=== PATIENT | female | born 1965 | race Caucasian/White ===

== ENCOUNTER 2018-01-25 15:29 | Outpatient (CLI) | payer BC ==
[2018-01-25 17:01] LABS: #Basophils 0.1 thou/uL (0.0-0.2); #Eosinphils 0.1 thou/uL (0.0-0.7); #Lymphocytes 1.7 thou/uL (1.20-3.40); #Monocytes 0.7 thou/uL (0.11-0.59); #Neutrophils 2.9 thou/uL (1.40-6.50); %Basophils 1.3 % (0.0-1.0); %Eosinophils 2.1 % (0.0-10.0); %Lymphocytes 31.8 % (21.0-51.0); %Monocytes 12.5 % (0.0-10.0); %Neutrophils 52.2 % (42.0-75.0); Hemoglobin 14.2 g/dL (12.0-16.0); Mean Corpuscular HGB CONC 33.6 g/dL (32.0-36.0); Mean Corpuscular Hemoglobin 31.9 pg (27.0-31.0); Mean Corpuscular Volume 94.9 fL (78.0-98.0); Mean Platelet Volume 7.7 fL (7.4-10.4); Platelet Count 280 thou/uL (130-400); RBC Distribution Width 11.1 % (11.5-14.5); Red Blood Cell (RBC) Count 4.44 mill/uL (4.20-5.40); White Blood Cell (WBC) Count 5.5 thou/uL (4.8-10.8)
[2018-01-25 17:31] LABS: Anion Gap 15 mmol/L (10-20); BUN (Urea Nitrogen) 25 mg/dL (9.8-20.1); Calc. Creatinine Clearance 0 mL/min (70-130); Carbon Dioxide 23 mmol/L (22-29); Chloride 108 mmol/L (98-107); Estimated GFR-MDRD 68; Sodium 142 mmol/L (136-145)
[2018-01-25 17:32] LABS: Calcium 9.9 mg/dL (7.8-10.44); Glucose 88 mg/dL (70-105)
== END 2018-01-25 15:30 | disposition home or self-care (01) ==
LOC: LABBT 15:29
PROVIDERS: ATTEND Orthopaedic Surgery
DX: Z01.818 Encounter for other preprocedural examination (principal); M75.101 Unspecified rotator cuff tear or rupture of right shoulder, not specified as traumatic
CPT/HCPCS: 80048; 85025; 93005; 93010

== ENCOUNTER 2018-02-01 06:23 | Day surgery (SDC) | payer BC ==
[2018-01-25 15:46] VITALS: BMI 28.8
[2018-02-01] MEDS ORDERED: Midazolam HCl 2 mg/2 ml Vial ONE (07:08)
[2018-02-01] MEDS ORDERED: Fentanyl 100 MCG/2 ML VIAL ONE ×2 (07:09→07:51)
[2018-02-01] MEDS ORDERED: CEFAZOLIN 2 GM/50 ML BAG ONE (07:30)
[2018-02-01] MEDS ORDERED: Scopolamine 1.5 mg/72 hour Patch ONE (07:30)
[2018-02-01] MEDS ORDERED: Ketorolac Tromethamine 30 MG/ML VIAL IVP PRN (07:56)
[2018-02-01] MEDS ORDERED: traMADol HCl 50 MG TAB PO PRN ×2 (07:56)
[2018-02-01] MEDS ORDERED: HYDROcodone/Acetaminophen 10/325 mg Tablet PO PRN ×2 (07:56)
[2018-02-01] MEDS ORDERED: Zolpidem Tartrate 5 MG TAB PO PRN (07:56)
[2018-02-01] MEDS ORDERED: Promethazine HCl 25 MG/ML VIAL IM PRN (07:56)
[2018-02-01] MEDS ORDERED: Ropivacaine 0.2% 550 ML 550 ML NERVE BLCK SCH (07:56)
[2018-02-01] MEDS ORDERED: Ondansetron PF 4 MG/2 ML Vial IVP PRN (07:56)
[2018-02-01] MEDS ORDERED: Fentanyl 100 MCG/2 ML VIAL IV PRN (08:01)
[2018-02-01] MEDS ORDERED: Ropivacaine 0.2% HCl/PF (40 MG/20 ML VIAL) ONE (15:22)
[2018-02-01] MEDS ORDERED: Ropivacaine 0.5% HCl/PF (150 MG/30 ML VIAL) ONE (15:22)
--- NOTE | 2018-02-01 15:47 | OP ---
DATE OF PROCEDURE: 02/01/2018 PREOPERATIVE DIAGNOSIS: Rotator cuff tear, right. POSTOPERATIVE DIAGNOSIS: Rotator cuff tear, right. ASSISTANTS: None. BLOOD LOSS: Minimal. SPECIMENS: None. DRAINS: None. COMPLICATIONS: None. She tolerated the procedure. PROCEDURE PERFORMED: Right shoulder arthroscopic rotator cuff repair using two-anchor double-row technique. DESCRIPTION OF PROCEDURE: The patient was taken to the operating room, where general anesthesia was induced. She was placed in left lateral decubitus position. Right arm was prepped and draped in the usual sterile fashion after 15 pounds of traction was applied. The scope was placed in the glenohumeral joint. good condition. She had a full-thickness rotator cuff tear. There was no significant arthritis. Scope was placed in the subacromial bursa. A bursectomy was performed. CA ligament was taken down. Anterior and inferior acromioplasty were performed. I then mobilized the rotator cuff tear. I freshened the greater tuberosity with the shaver. I freshened the margins of the rotator cuff tear with a shaver and mobilized the cuff tear. Two Corkscrew suture anchors were placed in the cancellous bone. Sutures were passed through the rotator cuff and tied with a good watertight repair. Then, we reinforced the double-row type repair using self-punching SwiveLock anchors. Shoulder was drained. Portals were closed with nylon suture. Sterile dressings were applied. Job ID: [id number]
[2018-02-01] MEDS ORDERED: Ondansetron PF 4 MG/2 ML Vial ONE (22:50)
[2018-02-01] MEDS ORDERED: Dexamethasone 20 MG/5 ML VIAL ONE (22:50)
[2018-02-01] MEDS ORDERED: ePHEDrine/0.9% NaCl/PF SYRINGE 50 mg/10 ml ONE (22:50)
[2018-02-01] MEDS ORDERED: Glycopyrrolate 0.2 MG/ML 5 ML SYRINGE ONE (22:50)
[2018-02-01] MEDS ORDERED: Lidocaine 1% PF 5 ML VIAL ONE (22:50)
[2018-02-01] MEDS ORDERED: PROPOFOL 200 MG/20 ML VIAL ONE (22:50)
[2018-02-01] MEDS ORDERED: Ketorolac Tromethamine 30 MG/ML VIAL ONE (22:50)
== END 2018-02-01 11:39 | disposition home or self-care (01) ==
LOC: SDC 06:23
PROVIDERS: ATTEND Orthopaedic Surgery
PROC: 0LQ14ZZ Repair Right Shoulder Tendon, Percutaneous Endoscopic Approach (ICD-10-PCS; principal; 2018-02-01)
PROC: 0RNJ4ZZ Release Right Shoulder Joint, Percutaneous Endoscopic Approach (ICD-10-PCS; principal; 2018-02-01)
PROC: 0RHJ44Z Insertion of Internal Fixation Device into Right Shoulder Joint, Percutaneous Endoscopic Approach (ICD-10-PCS; principal; 2018-02-01)
DX: M75.121 Complete rotator cuff tear or rupture of right shoulder, not specified as traumatic (principal); Q63.1 Lobulated, fused and horseshoe kidney; G43.909 Migraine, unspecified, not intractable, without status migrainosus; G47.30 Sleep apnea, unspecified; I10 Essential (primary) hypertension; E78.00 Pure hypercholesterolemia, unspecified; Z79.899 Other long term (current) drug therapy
CPT/HCPCS: A4306; C1713; G8984-GP-CK; G8985-GP-CK; G8986-GP-CK; J1100; J1885; J2001; J2250; J2405; J2704; J2795; J3010